=== PATIENT | female | born 1985 | race Caucasian/White ===

== ENCOUNTER 2020-11-13 14:46 | Emergency (ER) | payer OTHER ==
[~2020-11-13] VITALS: Ht 167.6 cm; Wt 64.9 kg
[2020-11-13] MEDS ORDERED: IBUPROFEN 600 MG TAB PO STA (15:46)
[2020-11-13] MEDS ORDERED: CYCLOBENZAPRINE HCL 10 MG TAB PO ONE (16:00)
[2020-11-13] MEDS ORDERED: CYCLOBENZAPRINE HCL 10 MG TAB ONE (16:07)
[2020-11-13] MEDS ORDERED: IBUPROFEN 600 MG TAB ONE (16:07)
[2020-11-13] MEDS ORDERED: CYCLOBENZAPRINE5 MG PO (16:35)
[2020-11-13] MEDS ORDERED: IBUPROFEN800 MG PO (16:36)
== END 2020-11-13 16:48 | disposition home or self-care (01) ==
LOC: FSED 15:23
DX: S13.4XXA Sprain of ligaments of cervical spine, initial encounter (principal); R51.9 Headache, unspecified; V43.61XA Car passenger injured in collision with sport utility vehicle in traffic accident, initial encounter; Y92.488 Other paved roadways as the place of occurrence of the external cause; D64.9 Anemia, unspecified
CPT/HCPCS: 81003; 81025; 99283